=== PATIENT | female | born 2000 | race Caucasian/White ===

== ENCOUNTER 2019-08-28 19:52 | Emergency (ER) | payer BC, MEDICAID ==
[~2019-08-28] VITALS: Ht 176.7 cm; Wt 5.8 kg
[~2019-08-28 19:52] MED LIST: ONDA8TAB9 PO
--- NOTE | 2019-08-28 20:05 | ED General ---
General Stated Complaint: BACK PAIN Source of Information: Patient Exam Limitations: No Limitations History of Present Illness Date Seen by Provider: Aug 28, 2019 Time Seen by Provider: 20:03 Initial Comments To ER with left sacroiliac back pain, this radiates down the left buttock and into the left calf. This began last night at about 1 AM while she was trying to go to sleep, doesn't recall any particular movement or event that caused this.. She has been unable to get comfortable all day today. She had this happen once before in high school, it wasn't this bad and went away on its own. Her last dose of pain medication was ibuprofen at about 5 PM but it doesn't seem to have helped yet. Walking and certain positions seem to exacerbate this pain. No fever no chills no dysuria. She started her menstrual period yesterday. No loss of bowel or bladder control or loss of sensation of genitals Timing/Duration: 12-24 Hours Severity: Moderate Associated Systoms: Denies Symptoms; No Chest Pain, No Cough, No Diaphoresis, No Fever/Chills, No Nausea/Vomiting Allergies and Home Medications Allergies Coded Allergies: No Known Drug Allergies (Unverified , 03/11/18) Home Medications Ondansetron 8 Mg Tab.rapdis, 8 MG PO Q6H PRN for NAUSEA/VOMITING Prescribed by: ROJELIO GALLAGHER on 03/11/18 1403 Patient Home Medication List Home Medication List Reviewed: Yes Review of Systems Review of Systems Constitutional: see HPI; No chills EENTM: see HPI Respiratory: no symptoms reported Cardiovascular: no symptoms reported Genitourinary: no symptoms reported Musculoskeletal: see HPI, back pain Skin: no symptoms reported Hematologic/Lymphatic: No Symptoms Reported Past Cqmrytd-Cfwibo-Bpwchn Hx Patient Social History 2nd Hand Smoke Exposure: No Recent Foreign Travel: No Contact w/Someone Who Travel: No Recent Hopitalizations: No (DENIES MEDICAL HX. ) Past Medical History Surgeries: No Respiratory: No Cardiac: No Neurological: No Genitourinary: No Gastrointestinal: No Musculoskeletal: No Endocrine: No HEENT: No Cancer: No Psychosocial: No Integumentary: No Blood Disorders: No Physical Exam Vital Signs Vital Signs - First Documented 08/28/19 20:10 Temp 36.7 Pulse 114 Resp 18 B/P (MAP) 122/83 Pulse Ox 99 O2 Delivery Room Air Capillary Refill : Height, Weight, BMI Height: 5'6.00" Weight: 125lbs. oz. 56.892242fl; 14.06 BMI Method:Stated General Appearance: No Apparent Distress, WD/WN Eyes: Bilateral Eye Normal Inspection, Bilateral Eye PERRL HEENT: PERRL/EOMI, TMs Normal Neck: Full Range of Motion, Normal Inspection Respiratory: No Accessory Muscle Use, No Respiratory Distress Cardiovascular: Regular Rate, Rhythm, Normal Peripheral Pulses Gastrointestinal: Non Tender, Soft Back: Normal Inspection, Vertebral Tenderness (tenderness over the left sacroiliac joint.) Neurologic/Psychiatric: Alert, Oriented x3 Skin: Normal Color, Warm/Dry Progress/Results/Core Measures Suspected Sepsis SIRS Temperature: Pulse: Respiratory Rate: Laboratory Tests 08/28/19 20:04: White Blood Count 6.1 Blood Pressure / Mean: Laboratory Tests 08/28/19 20:04: Platelet Count 265 Results/Orders Lab Results Laboratory Tests Test 08/28/19 20:04 08/28/19 20:10 Range/Units White Blood Count 6.1 4.3-11.0 10^3/uL Red Blood Count 4.87 4.35-5.85 10^6/uL Hemoglobin 11.7 11.5-16.0 G/DL Hematocrit 38 35-52 % Mean Corpuscular Volume 78 L 80-99 FL Mean Corpuscular Hemoglobin 24 L 25-34 PG Mean Corpuscular Hemoglobin Concent 31 L 32-36 G/DL Red Cell Distribution Width 15.3 H 10.0-14.5 % Platelet Count 265 130-400 10^3/uL Mean Platelet Volume 11.0 H 7.4-10.4 FL Neutrophils (%) (Auto) 73 42-75 % Lymphocytes (%) (Auto) 15 12-44 % Monocytes (%) (Auto) 10 0-12 % Eosinophils (%) (Auto) 1 0-10 % Basophils (%) (Auto) 1 0-10 % Neutrophils # (Auto) 4.4 1.8-7.8 X 10^3 Lymphocytes # (Auto) 0.9 L 1.0-4.0 X 10^3 Monocytes # (Auto) 0.6 0.0-1.0 X 10^3 Eosinophils # (Auto) 0.1 0.0-0.3 10^3/uL Basophils # (Auto) 0.0 0.0-0.1 10^3/uL Serum Test, Qualitative NEGATIVE NEGATIVE My Orders Orders - ROJELIO GALLAGHER APRN Ua Culture If Indicated (08/28/19 20:02) Cbc With Automated Diff (08/28/19 20:02) Ed Iv/Invasive Line Start (08/28/19 20:02) Hcg,Qualitative Serum (08/28/19 20:02) Ketorolac Injection (Toradol Injection) (08/28/19 20:15) Orphenadrine Injection (Norflex Injectio (08/28/19 20:15) Medications Given in ED Current Medications Medications Dose Ordered Sig/Loyda Route Start Time Stop Time Status Last Admin Dose Admin Ketorolac Tromethamine 15 mg ONCE ONCE IVP 08/28/19 20:15 08/28/19 20:16 DC 08/28/19 20:10 15 MG Orphenadrine Citrate 60 mg ONCE ONCE IV 08/28/19 20:15 08/28/19 20:16 DC 08/28/19 20:10 60 MG Vital Signs/I&O 08/28/19 20:10 Temp 36.7 Pulse 114 Resp 18 B/P (MAP) 122/83 Pulse Ox 99 O2 Delivery Room Air Capillary Refill : Departure Communication (Admissions) All her symptoms seemed to be most consistent with lumbar radiculopathy but she was tachycardic at about 1:15 to 120. While this may simply be related to pain it may represent infection so we will do labs Impression Primary Impression: Lumbar radiculopathy Disposition: HOME, SELF-CARE Condition: Stable Departure-Patient Inst. Decision time for Depature: 20:43 Referrals: NO,LOCAL PHYSICIAN (PCP/Family) Primary Care Physician Patient Instructions: Radiculopathy Add. Discharge Instructions: 1. Return to ER for fevers, chills, loss of control of bowel or bladder or loss of sensation of genitals. Follow-up with your doctor next week for recheck. Scripts Methocarbamol (Robaxin-750) 750 Mg Tablet 750 MG PO Q4H PRN for PAIN-MODERATE (5-7), #14 TAB Prov: ROJELIO GALLAGHER APRN 08/28/19 Prednisone (Prednisone) 20 Mg Tab 40 MG PO DAILY, #6 TAB 0 Refills Prov: ROJELIO GALLAGHER APRN 08/28/19 Work/School Note: Work Release Form Date Seen in the Emergency Department: Aug 28, 2019 Return to Work: Aug 30, 2019 ROJELIO GALLAGHER APRN Aug 28, 2019 20:05
[2019-08-28 20:11] LABS: BASOPHILS % (AUTO) 1 % (0-10); EOSINOPHILS # (AUTO) 0.1 10^3/uL (0.0-0.3); EOSINOPHILS % (AUTO) 1 % (0-10); HEMATOCRIT 38 % (35-52); HEMOGLOBIN 11.7 G/DL (11.5-16.0); LYMPHOCYTES # (AUTO) 0.9 X 10^3 (1.0-4.0); LYMPHOCYTES % (AUTO) 15 % (12-44); MEAN CORPUSCULAR HEMOGLOBIN 24 PG (25-34); MEAN CORPUSCULAR HGB CONC 31 G/DL (32-36); MEAN CORPUSCULAR VOLUME 78 FL (80-99); MONOCYTES # (AUTO) 0.6 X 10^3 (0.0-1.0); MONOCYTES % (AUTO) 10 % (0-12); NEUTROPHILS # (AUTO) 4.4 X 10^3 (1.8-7.8); NEUTROPHILS % (AUTO) 73 % (42-75); PLATELET COUNT 265 10^3/uL (130-400); RED CELL DISTRIBUTION WIDTH 15.3 % (10.0-14.5); WHITE BLOOD COUNT 6.1 10^3/uL (4.3-11.0)
[2019-08-28] MEDS ORDERED: KETOROLAC 30 MG/ML VIAL IVP ONE (20:15)
[2019-08-28] MEDS ORDERED: ORPHENADRINE 60 MG/2 ML (NORFLEX) AMP IV ONE (20:15)
--- NOTE | 2019-08-28 20:20 | NUR ---
Report taken from Jose Wasserman RN.
[2019-08-28 20:25] LABS: BILIRUBIN,URINE NEGATIVE (NEGATIVE); CLARITY,URINE CLEAR; COLOR,URINE YELLOW; GLUCOSE, URINE (UA) NEGATIVE (NEGATIVE); KETONES,URINE NEGATIVE (NEGATIVE); LEUKOCYTE ESTERASE ,URINE NEGATIVE (NEGATIVE); NITRITE,URINE NEGATIVE (NEGATIVE); PROTEIN,URINE TRACE (NEGATIVE)
[2019-08-28] MEDS ORDERED: PRD20T PO ×2 (20:45→21:00)
[2019-08-28] MEDS ORDERED: METH-313 PO ×2 (20:45→21:00)
[2019-08-28] MEDS ORDERED: RX-TRAMADOL 50 MG (ULTRAM) TAB PPK#4 PO STA (20:46)
[2019-08-28 20:52] LABS: AMORPHOUS SEDIMENT,UR FEW AMOR URATES /LPF; BACTERIA,URINE TRACE /HPF; RBC,URINE 0-2 /HPF
== END 2019-08-28 21:05 | disposition home or self-care (01) ==
LOC: EDUNIT# 19:52 → ER 19:53
DX: M54.16 Radiculopathy, lumbar region (principal)
CPT/HCPCS: 36415; 81000; 84703; 85025; 96374; 96375

== ENCOUNTER 2022-04-25 12:30 | Emergency (ER) | payer BC ==
[~2022-04-25] VITALS: Ht 162.5 cm; Wt 58.0 kg
[~2022-04-25 12:30] MED LIST changes: +METH-313 PO; +PRD20T PO
--- NOTE | 2022-04-25 13:02 | ED Back Pain ---
General Stated Complaint: LOWER BACK/LEG PAIN Source of Information: Patient Exam Limitations: No Limitations History of Present Illness Date Seen by Provider: Apr 25, 2022 Time Seen by Provider: 13:02 Initial Comments This is a 21 yo female with history of lumbar radiculopathy who presented to the ER via POV with c/o low back pain that radiates down her left leg into her foot. Pain started a few days ago and has progressively worsened. She lifts 70 pound boxes at work and feels this is source of recurrent pain. Admits to poor body mechanics with lifting by bending at her back. Has taken Ibuprofen with little relief. Describes as constant dull ache with intermittent sharp/shooting pain. Worse with movement, better when lying flat. No numbness in groin/buttocks, no incontinence of bowel or bladder. No fever, chills, nausea, vomiting, diarrhea, abdominal pain. Allergies and Home Medications Allergies Coded Allergies: No Known Drug Allergies (Unverified , 03/11/18) Patient Home Medication List Home Medication List Reviewed: Yes Cefuroxime Axetil (Cefuroxime) 250 Mg Tablet, 250 MG PO BID Prescribed by: MAXX PIPER on 04/25/22 152 Methocarbamol (Robaxin-750) 750 Mg Tablet, 750 MG PO Q4H PRN for PAIN-MODERATE (5-7) Prescribed by: ROJELIO GALLAGHER on 08/28/192099 Naproxen (Naprosyn) 500 Mg Tablet, 500 MG PO BID PRN for PAIN-BREAKTHROUGH Prescribed by: MAXX PIPER on 04/25/22 152 Ondansetron (Zofran Odt) 8 Mg Tab.rapdis, 8 MG PO Q6H PRN for NAUSEA/VOMITING Prescribed by: ROJELIO GALLAGHER on 03/11/18 1403 Prednisone (Prednisone) 20 Mg Tab, 40 MG PO DAILY Prescribed by: ROJELIO GALLAGHER on 08/28/192099 Prednisone (Prednisone) 20 Mg Tab, 40 MG PO DAILY Prescribed by: MAXX PIPER on 04/25/22 1528 Review of Systems Constitutional: see HPI : No LMP: Apr 24, 2022 Control/STD Prophylaxis: None Past Empcwml-Wtfwqn-Coczic Hx Past Medical History Surgeries: No Respiratory: No Cardiac: No Neurological: No Genitourinary: No Gastrointestinal: No Musculoskeletal: No Endocrine: No HEENT: No Cancer: No Psychosocial: No Integumentary: No Blood Disorders: No Physical Exam Vital Signs Capillary Refill : Height, Weight, BMI Height: 5'6.00" Weight: 125lbs. oz. 56.102843to; 1.00 BMI Method:Stated General Appearance: No Apparent Distress, WD/WN HEENT: PERRL/EOMI, Normal ENT Inspection, Pharynx Normal Neck: Full Range of Motion, Normal Inspection, Non Tender, Supple Cardiovascular: Regular Rate, Rhythm, No Murmur, Normal Peripheral Pulses Respiratory: Lungs Clear, Normal Breath Sounds Gastrointestinal: Normal Bowel Sounds, Non Tender, Soft Back: Normal Inspection, Vertebral Tenderness (lumbar/sacral), Other (+ SLR left ) Extremity: Normal Capillary Refill, Normal Inspection, Normal Range of Motion; No No Pedal Edema, No Calf Tenderness, No Inflammation Neurologic/Psychiatric: Alert, Oriented x3, No Motor/Sensory Deficits, Normal Mood/Affect Skin: Normal Color, Warm/Dry Progress/Results/Core Measures Results/Orders Lab Results Laboratory Tests Test 04/25/22 13:04 Range/Units Urine Color YELLOW Urine Clarity CLEAR Urine pH 6.5 5-9 Urine Specific Weiser 1.020 1.016-1.022 Urine Protein NEGATIVE NEGATIVE Urine Glucose (UA) NEGATIVE NEGATIVE Urine Ketones 1+ H NEGATIVE Urine Nitrite NEGATIVE NEGATIVE Urine Bilirubin NEGATIVE NEGATIVE Urine Urobilinogen 0.2 < = 1.0 MG/DL Urine Leukocyte Esterase 1+ H NEGATIVE Urine RBC (Auto) TRACE-I H NEGATIVE Urine RBC 2-5 H /HPF Urine WBC 5-10 H /HPF Urine Squamous Epithelial Cells 5-10 /HPF Urine Crystals NONE /LPF Urine Bacteria LARGE H /HPF Urine Casts NONE /LPF Urine Mucus NEGATIVE /LPF Urine Culture Indicated YES My Orders Orders - MAXX PIPER APRN Ua Culture If Indicated (04/25/22 12:35) Urine Bedside (04/25/22 12:35) Urine Culture (04/25/22 13:04) Ed Iv/Invasive Line Start (04/25/22 13:21) Ketorolac Injection (Toradol Injection) (04/25/22 13:30) Ceftriaxone 1 Gm Pre-Mix (Rocephin 1 Gm (04/25/22 13:30) Ct Lumbar Spine Wo (04/25/22 13:30) Sacrum And Coccyx (04/25/22 13:30) Methylprednisolone Sod Succ (Solu-Medrol (04/25/22 15:45) Medications Given in ED Vital Signs/I&O 04/26/22 00:00 Intake Total 50 ml Balance 50 ml Progress Progress Note : Progress Note Able to ambulate to exam room, did report pain with ambulation. Good muscle strength bilaterally. Has had no imaging of low back at this time and she does not have primary care for follow-up. Obtained CT scan of her lumbar spine which showed bulging disc at L5-S1, will trial conservative treatment with rest for the next couple days, NSAIDs, steroids. She is to call local providers to establish care for further management, to return to the emergency department if she has any worsening symptoms, loss of bowel or bladder function, any other new or concerning symptoms. Discharge plan of care reviewed and she is agreeable with plan. Diagnostic Imaging Diagonstic Imaging: Xray Comments [facility] [place], [place] NAME: JUAN DAVID H[facility]LIN [facility] REC#: [id number] PT STATUS: DEP ER : 2000 PHYSICIAN: MAXX PIPER APRN ADMIT DATE: 04/25/22/ER Signed Date of Exam:04/25/22 SACRUM AND COCCYX INDICATION: Low back pain. FINDINGS: AP and lateral views of sacrum and coccyx are obtained. No fracture or malalignment is identified. There is no evidence of lytic or sclerotic lesion. There is a mildly opaque linear object projecting over the right pubis, which may be artifactual. Sacroiliac joints appear to be intact. There is stool overlying the sacrum, which limits evaluation on the AP projection. IMPRESSION: No acute abnormality is identified. There is possible artifact projecting over the right pubis on the anterior to posterior views, and clinical correlation may be of value. Dictated by: Dictated on workstation # [id number] Dict: 04/25/22 1501 Trans: 04/25/221618 [id number] Interpreted by: CONSUELO SETHI MD Electronically signed by: CONSUELO SETHI MD 04/25/22 1619 Reviewed: Reviewed by Pa Diagonstic Imaging: CT Comments [facility]. [place], [place] NAME: JUAN DAVID [facility]AMLIN [facility] REC#: [id number] PT STATUS: REG ER : 2000 PHYSICIAN: MAXX PIPER APRN ADMIT DATE: 04/25/22/ER Signed Date of Exam:04/25/22 CT LUMBAR SPINE WO EXAMINATION: CT lumbar spine without contrast. TECHNIQUE: Multiple contiguous axial images were obtained through the lumbar spine without the use of intravenous contrast. Sagittal and coronal reformations were then performed. All CT scans use one or more of the following dose optimizing techniques: automated exposure control, MA and/or KvP adjustment based on patient size and exam type or iterative reconstruction. HISTORY: Low back pain and radiculopathy. COMPARISON: None available. FINDINGS: The alignment of the lumbar spine is normal. Vertebral body heights are normal and no fracture is seen. Facet joints are normal. Disk heights are normal. Prominent disc bulge at L5-S1 which may result in mild central canal or neuroforaminal stenosis. Limited views of the abdomen and pelvis show no soft tissue abnormality. The aorta is normal. IMPRESSION: 1. No acute osseous abnormality of the lumbar spine. 2. Prominent disc bulge at L5-S1 which may result in mild central canal or neuroforaminal stenosis. Dictated by: Dictated on workstation # [id number] Dict: 04/25/22 1445 Trans: 04/25/22 1505 [id number] Interpreted by: TATE BLACK DO Electronically signed by: TATE BLACK DO 04/25/22 1505 Reviewed: Reviewed by Me Departure Impression Primary Impression: UTI (urinary tract infection) Additional Impression: Bulging lumbar disc Disposition: HOME, SELF-CARE Condition: Improved Departure-Patient Inst. Decision time for Depature: 15:09 Referrals: NO,LOCAL PHYSICIAN (PCP/Family) Primary Care Physician Patient Instructions: Herniated Disc (DC) Add. Discharge Instructions: Plan: 1. Patient here drinking plenty of fluids to continue to flush out your bladder. Take all your antibiotics as directed and complete full course even if you begin to feel better. 2. We did perform urine culture of your urine, if we need to change her antibiotics we will notify you via telephone within a few days. 3. Take steroids daily as directed, take with food to help prevent GI upset. 4. You can take naproxen twice a day as directed again take this with food. 5. Follow-up with your primary care provider as soon as you are able. Please call to schedule appointment. 6. Avoid any excessive bending, twisting as this may worsen your symptoms. I would advise you to wear back brace to help proper technique with lifting. 7. return to the ER for any new, concerning, worsening symptoms. Scripts Cefuroxime Axetil (Cefuroxime) 250 Mg Tablet 250 MG PO BID for 10 Days, #10 TAB Prov: MAXX PIPER FOREIGN EXCHANGE SERVICES MANAGER 04/25/22 Prednisone (Prednisone) 20 Mg Tab 40 MG PO DAILY for 6 Days, #6 TAB 0 Refills Prov: MAXX PIPER FOREIGN EXCHANGE SERVICES MANAGER 04/25/22 Naproxen (Naprosyn) 500 Mg Tablet 500 MG PO BID PRN for PAIN-BREAKTHROUGH, #14 TAB 0 Refills Prov: MAXX PIPER FOREIGN EXCHANGE SERVICES MANAGER 04/25/22 Work/School Note: Work Release Form Date Seen in the Emergency Department: Apr 25, 2022 Return to Work: Apr 28, 2022 Other Restrictions Listed Below: No lifting over 10 pounds for 2 weeks. MAXX PIPER FOREIGN EXCHANGE SERVICES MANAGER Apr 25, 2022 13:02
[2022-04-25 13:11] LABS: BILIRUBIN,URINE NEGATIVE (NEGATIVE); CLARITY,URINE CLEAR; COLOR,URINE YELLOW; GLUCOSE, URINE (UA) NEGATIVE (NEGATIVE); KETONES,URINE 1+ (NEGATIVE); LEUKOCYTE ESTERASE ,URINE 1+ (NEGATIVE); NITRITE,URINE NEGATIVE (NEGATIVE); PH,URINE 6.5 (5-9); PROTEIN,URINE NEGATIVE (NEGATIVE)
[2022-04-25 13:18] LABS: BACTERIA,URINE LARGE /HPF
[2022-04-25] MEDS ORDERED: KETOROLAC 30 MG/ML VIAL IVP ONE (13:30)
[2022-04-25] MEDS ORDERED: cefTRIAXone 1 GM PRE-MIX 50 ML IV ONE (13:30)
--- NOTE | 2022-04-25 14:50 | Diagnostic Imaging Report ---
EXAMINATION: CT lumbar spine without contrast. TECHNIQUE: Multiple contiguous axial images were obtained through the lumbar spine without the use of intravenous contrast. Sagittal and coronal reformations were then performed. All CT scans use one or more of the following dose optimizing techniques: automated exposure control, MA and/or KvP adjustment based on patient size and exam type or iterative reconstruction. HISTORY: Low back pain and radiculopathy. COMPARISON: None available. FINDINGS: The alignment of the lumbar spine is normal. Vertebral body heights are normal and no fracture is seen. Facet joints are normal. Disk heights are normal. Prominent disc bulge at L5-S1 which may result in mild central canal or neuroforaminal stenosis. Limited views of the abdomen and pelvis show no soft tissue abnormality. The aorta is normal. IMPRESSION: 1. No acute osseous abnormality of the lumbar spine. 2. Prominent disc bulge at L5-S1 which may result in mild central canal or neuroforaminal stenosis. Dictated by: Dictated on workstation # [id number]
--- NOTE | 2022-04-25 15:05 | Diagnostic Imaging Report ---
INDICATION: Low back pain. FINDINGS: AP and lateral views of sacrum and coccyx are obtained. No fracture or malalignment is identified. There is no evidence of lytic or sclerotic lesion. There is a mildly opaque linear object projecting over the right pubis, which may be artifactual. Sacroiliac joints appear to be intact. There is stool overlying the sacrum, which limits evaluation on the AP projection. IMPRESSION: No acute abnormality is identified. There is possible artifact projecting over the right pubis on the anterior to posterior views, and clinical correlation may be of value. Dictated by: Dictated on workstation # [id number]
[2022-04-25] MEDS ORDERED: NAPR-1071 PO (15:28)
[2022-04-25] MEDS ORDERED: PRD20T PO (15:28)
[2022-04-25] MEDS ORDERED: CEFU250T80 PO (15:28)
[2022-04-25] MEDS ORDERED: predniSONE 20 MG TAB PO ONE (15:30)
[2022-04-25] MEDS ORDERED: methylPREDNISolone 40 MG/ML (Solu-MEDROL) VIAL IV ONE (15:45)
[2022-04-25 15:55] VITALS: BP 126/85
== END 2022-04-25 15:59 | disposition home or self-care (01) ==
LOC: EDUNIT# 12:30 → ER 12:33
DX: M51.26 Other intervertebral disc displacement, lumbar region (principal); N39.0 Urinary tract infection, site not specified; M51.16 Intervertebral disc disorders with radiculopathy, lumbar region; Z28.310 Unvaccinated for COVID-19
CPT/HCPCS: 72131; 72220; 81000; 84703; 87088; 99282

== ENCOUNTER → 2022-05-03 | Outpatient (CLI) | payer BC ==
[~2022-05-03] MED LIST changes: +CEFU250T80 PO; +NAPR-1071 PO
--- NOTE | 2022-05-03 15:19 | Diagnostic Imaging Report ---
CLINICAL INDICATION: Patient with low back pain. No known injury, the patient does a lot of heavy lifting at work. EXAM: MRI of the lumbar spine without contrast. Sequences include sagittal T2, sagittal T1, sagittal T2 fat-sat, and axial T2. COMPARISON: CT scan the lumbar spine without contrast dated 04/25/2022. FINDINGS: There is no acute lumbar spine fracture or dislocation. There is no significant abnormal Modic signal changes. There is no significant paraspinal soft tissue abnormality. The visualized portions of the distal thoracic spinal cord, conus medullaris, and cauda equina nerve roots are unremarkable. The conus medullaris tip is seen at the L1-L2 intervertebral level. There is an L5-S1 small to moderate-sized posterior disk extrusion/herniation. There is also amorphous density just inferior to the area of disk herniation. This area measures roughly 1.4 cm x 1.2 cm x 1.4 cm in craniocaudal dimensions. This amorphous area may represent migrated or sequestered disk. There is significant encroachment upon the non-exited S1 and S2 nerve roots. There is severe central canal stenosis due to this area of disk herniation. There is no significant neural foramen narrowing. There is moderate loss of disk space height. Patient noted to have a disk herniation at the L5-S1 level on the prior CT scan, but unable to determine if it is significantly changed. The remainder of the lumbar spine shows no other significant disk disease. There is no other significant central canal or neural foramen narrowing. Intervertebral disk heights and vertebral body heights are otherwise maintained. IMPRESSION: 1.: There is a small to moderate sized L5-S1 posterior disk herniation with amorphous disk material seen inferior to the disk herniation. This may represent disk migration or sequestration. MRI of the lumbar spine with contrast is suggested to better evaluate. There is concern for encroachment upon the non-exited left S1 and S2 nerve roots. There is severe L5-S1 central canal narrowing. 2: The remainder of the lumbar spine is unremarkable. Dictated by: Dictated on workstation # [id number]
== END ==
LOC: RAD 12:53
PROVIDERS: ATTEND Nurse Practitioner Family
DX: M48.07 Spinal stenosis, lumbosacral region (principal); M51.27 Other intervertebral disc displacement, lumbosacral region
CPT/HCPCS: 72148

== ENCOUNTER → 2022-05-04 | Outpatient (CLI) | payer BC ==
[~2022-05-04] MED LIST changes: +GADOTERATE 0.5 MMOL/ML (CLARISCAN) 15 ML VIAL IV ONE
--- NOTE | 2022-05-04 15:13 | Diagnostic Imaging Report ---
PROCEDURE: MR imaging lumbar spine with contrast. TECHNIQUE: Multiplanar, multisequence MR imaging of the lumbar spine was performed with contrast. INDICATION: Disc protrusion as well as ventral epidural tissue, indeterminate, posterior to the S1 segment. Patient returns for contrast-enhanced imaging for further evaluation. COMPARISON: It is correlated with nonenhanced study of one day prior as well as a CT performed 04/25. FINDINGS: The vertebral statures are stable and normal. There is no abnormal vertebral enhancement after contrast. No abnormal enhancing intrathecal process. The midline disc protrusion at the L5-S1 level is redemonstrated. In addition, there is a large slightly left paramedian ventral epidural sequestered disc fragment which showed minimal rim enhancement but no internal enhancement to suggest a neoplasm. This portion measured 10 mm AP x 10 mm transverse and results in severe left lateral recess stenosis impinging upon the exiting descending left S1 nerve as well as severe central canal stenosis. This also results in mild impingement upon the descending right S1 nerve. No other epidural abnormality. IMPRESSION: 1. Ventral epidural lesion present on earlier CT showed no suspicious internal enhancement and is confirmed a disc fragment resulting in severe canal and left greater than right lateral recess impingement. It is adjacent to but separable from the generalized bulging disc material at the L5-S1 level and is presumed a sequestered fragment. 2. No acute bony abnormality. No other significant finding. Dictated by: Dictated on workstation # [id number]
== END ==
LOC: RAD 12:30
PROVIDERS: ATTEND Nurse Practitioner Family
DX: M51.27 Other intervertebral disc displacement, lumbosacral region (principal); G95.89 Other specified diseases of spinal cord
CPT/HCPCS: 72149